=== PATIENT | female | born 1930 | race African-American/Black ===

== ENCOUNTER → 2019-07-12 | Outpatient (CLI) | payer OTHER | LOC: HYPER 10:25 | DX: E11.628 Type 2 diabetes mellitus with other skin complications (principal); K61.1 Rectal abscess; L02.31 Cutaneous abscess of buttock; R21 Rash and other nonspecific skin eruption; E11.40 Type 2 diabetes mellitus with diabetic neuropathy, unspecified; I10 Essential (primary) hypertension; Z79.82 Long term (current) use of aspirin; Z79.84 Long term (current) use of oral hypoglycemic drugs; Z87.891 Personal history of nicotine dependence ==